=== PATIENT | female | born 1980 | race Caucasian/White ===

== ENCOUNTER 2019-08-29 16:14 | Emergency (ER) | payer MEDICAID ==
[2019-08-29] MEDS ORDERED: Sodium Chloride 0.9% 10 ML Syringe FLUSH PRN (16:27)
[2019-08-29] MEDS ORDERED: Sodium Chloride 0.9% 1,000 ML IV ONE (16:27)
[2019-08-29] MEDS ORDERED: Sodium Chloride 0.9% 2.5 ML Syringe FLUSH PRN (16:27)
--- NOTE | 2019-08-29 16:29 | EDM.PDOC ---
ED HPI GENERAL MEDICAL PROBLEM - General Chief Complaint: Abdominal Pain Stated Complaint: ABD PAIN Time Seen by Provider: 08/29/19 16:27 Source of Information: Reports: Patient History Limitations: Reports: No Limitations - History of Present Illness INITIAL COMMENTS - FREE TEXT/NARRATIVE: HISTORY AND PHYSICAL: History of present illness: Patient is a 39-year-old female presents to the ED with complaint of abdominal pain x 7 days. She states she has had upper mid and left abdominal pain, was seen at [facility] today and diagnosed with a UTI. She states she has had some nausea but not vomiting, diarrhea, fevers, chills, chest pain, SOB. She reports history of gallstones. Denies significant past medical history. She reports surgical history of c-sections. Review of systems: As per history of present illness and below otherwise all systems reviewed and negative. Past medical history: As per history of present illness and as reviewed below otherwise noncontributory. Surgical history: As per history of present illness and as reviewed below otherwise noncontributory. Social history: No reported history of drug or alcohol abuse. Family history: As per history of present illness and as reviewed below otherwise noncontributory. Physical exam: General: Patient sitting comfortably in no acute distress and nontoxic appearing HEENT: Atraumatic, normocephalic, pupils reactive, negative for conjunctival pallor or scleral icterus, mucous membranes moist, throat clear, neck supple, nontender, trachea midline. No meningeal signs. Lungs: Clear to auscultation, breath sounds equal bilaterally, chest nontender. Heart: S1S2, regular, negative for clicks, rubs, or overt murmur. Abdomen: Epigastric abdominal tenderness to palpation. Soft, nondistended. Negative for masses or hepatosplenomegaly. Negative for costovertebral tenderness. No rigidity, rebound, guarding. Pelvis: Stable nontender. Genitourinary: Deferred. Rectal: Deferred. Extremities: Atraumatic, negative for cords or calf pain. Neurovascular unremarkable. Neuro: Awake, alert, oriented. Cranial nerves II through XII unremarkable. Cerebellum unremarkable. Motor and sensory unremarkable throughout. Exam nonfocal. Notes: Discussed with Dr. Teresa, she would patient to be transferred for urgent MRCP and possible ERCP. Diagnostics: CBC, CMP, RUQ US, UA Therapeutics: Prescriptions: Impression: Common bile duct dilation, elevated bilirubin Plan: Discussed with Dr. Gandhi, gastroenterology at [facility], patient accepted for transfer. Definitive disposition and diagnosis as appropriate pending reevaluation and review of above. Upper Abdomen Pain Score (Numeric/FACES): 7 - Related Data Allergies Allergy/AdvReac Type Severity Reaction Status Date / Time amoxicillin Allergy Swelling Verified 08/29/19 16:26 cephalexin Allergy Swelling Verified 08/29/19 16:26 Penicillins Allergy Swelling Verified 08/29/19 16:26 Home Meds: Home Meds Nitrofurantoin Macrocrystal [Macrodantin] 100 mg PO BID 08/29/19 [History] Past Medical History HEENT History: Reports: Other (See Below) Other HEENT History: seasonal allergy Cardiovascular History: Reports: None Respiratory History: Reports: None Gastrointestinal History: Reports: GERD [employer] [place] History: Reports: , Spontaneous Musculoskeletal History: Reports: None Neurological History: Reports: None Psychiatric History: Reports: None Endocrine/Metabolic History: Reports: Obesity/BMI 30+ Hematologic History: Reports: None Immunologic History: Reports: None Oncologic (Cancer) History: Reports: None Dermatologic History: Reports: None - Past Surgical History Female Surgical History: Reports: Section Musculoskeletal Surgical History: Reports: Other (See Below) Social & Family History - Family History HEENT: Reports: Cataract, Glaucoma Cardiac: Reports: High Cholesterol : Reports: Other (See Below) Other Family History: Kidney transplant Endocrine/Metabolic: Reports: Diabetes, type II Oncologic: Reports: Lung ED ROS GENERAL - Review of Systems Review Of Systems: ROS reveals no pertinent complaints other than HPI. ED EXAM, GI/ABD - Physical Exam Exam: See Below (see dictation) Course - Vital Signs Last Recorded V/S: Last Vital Signs Temp 97.1 F 08/29/19 16:24 Pulse 81 08/29/19 16:24 Resp 18 08/29/19 16:24 BP 118/81 08/29/19 16:24 Pulse Ox 100 08/29/19 16:24 - Orders/Labs/Meds Orders: Active Orders 24 hr Category Date Time Status CULTURE URINE [RM] Stat Lab 08/29/19 16:45 Received Sodium Chloride 0.9% [Saline Flush] Med 08/29/19 16:27 Active 10 ml FLUSH ASDIRECTED PRN Sodium Chloride 0.9% [Saline Flush] Med 08/29/19 16:27 Active 2.5 ml FLUSH ASDIRECTED PRN Saline Lock Insert [OM.PC] Stat Oth 08/29/19 16:27 Ordered Medication Orders Sodium Chloride (Saline Flush) 10 ml FLUSH ASDIRECTED PRN PRN Reason: Keep Vein Open Sodium Chloride (Saline Flush) 2.5 ml FLUSH ASDIRECTED PRN PRN Reason: Keep Vein Open Labs: Laboratory Tests 08/29/19 08/29/19 08/29/19 Range/Units 16:45 16:45 16:45 WBC 8.19 (4.0-11.0) K/uL RBC 4.65 (4.30-5.90) M/uL Hgb 13.8 (12.0-16.0) g/dL Hct 41.6 (36.0-46.0) % MCV 89.5 (80.0-98.0) fL MCH 29.7 (27.0-32.0) pg MCHC 33.2 (31.0-37.0) g/dL RDW Std Deviation 41.0 (28.0-62.0) fl RDW Coeff of Allegra 13 (11.0-15.0) % Plt Count 279 (150-400) K/uL MPV 9.90 (7.40-12.00) fL Neut % (Auto) 62.4 (48.0-80.0) % Lymph % (Auto) 24.4 (16.0-40.0) % George % (Auto) 8.8 (0.0-15.0) % Eos % (Auto) 4.0 (0.0-7.0) % Baso % (Auto) 0.4 (0.0-1.5) % Neut # (Auto) 5.1 (1.4-5.7) K/uL Lymph # (Auto) 2.0 (0.6-2.4) K/uL George # (Auto) 0.7 (0.0-0.8) K/uL Eos # (Auto) 0.3 (0.0-0.7) K/uL Baso # (Auto) 0.0 (0.0-0.1) K/uL Nucleated RBC % 0.0 /100WBC Nucleated RBCs # 0 K/uL Sodium (136-145) mmol/L Potassium (3.5-5.1) mmol/L Chloride (98-107) mmol/L Carbon Dioxide (21.0-32.0) mmol/L BUN (7.0-18.0) mg/dL Creatinine (0.6-1.0) mg/dL Est Cr Clr Drug Dosing mL/min Estimated GFR (MDRD) ml/min Glucose (74-106) mg/dL Calcium (8.5-10.1) mg/dL Total Bilirubin (0.2-1.0) mg/dL AST (15-37) IU/L ALT (14-63) IU/L Alkaline Phosphatase (46-116) U/L Total Protein (6.4-8.2) g/dL Albumin (3.4-5.0) g/dL Globulin (2.6-4.0) g/dL Albumin/Globulin Ratio (0.9-1.6) Lipase (73-393) U/L Urine Color ORANGE Urine Appearance HAZY Urine pH 5.0 (5.0-8.0) Ur Specific [place] >= 1.030 (1.001-1.035) Urine Protein 30 H (NEGATIVE) mg/dL Urine Glucose (UA) 100 H (NEGATIVE) mg/dL Urine Ketones >=80 (NEGATIVE) mg/dL Urine Occult Blood TRACE-INTACT H (NEGATIVE) Urine Nitrite POSITIVE H (NEGATIVE) Urine Bilirubin LARGE H (NEGATIVE) Urine Ictotest POSITIVE Urine Urobilinogen 4.0 H (<2.0) EU/dL Ur Leukocyte Esterase TRACE H (NEGATIVE) Urine RBC 0-2 (0-2/HPF) Urine WBC 1-3 (0-5/HPF) Ur Epithelial Cells FEW (NONE-FEW) Urine Bacteria FEW (NEGATIVE) Urine Mucus MODERATE (NONE-MOD) Urine HCG, Qual NEGATIVE (NEGATIVE) 08/29/19 Range/Units 16:45 WBC (4.0-11.0) K/uL RBC (4.30-5.90) M/uL Hgb (12.0-16.0) g/dL Hct (36.0-46.0) % MCV (80.0-98.0) fL MCH (27.0-32.0) pg MCHC (31.0-37.0) g/dL RDW Std Deviation (28.0-62.0) fl RDW Coeff of Allegra (11.0-15.0) % Plt Count (150-400) K/uL MPV (7.40-12.00) fL Neut % (Auto) (48.0-80.0) % Lymph % (Auto) (16.0-40.0) % George % (Auto) (0.0-15.0) % Eos % (Auto) (0.0-7.0) % Baso % (Auto) (0.0-1.5) % Neut # (Auto) (1.4-5.7) K/uL Lymph # (Auto) (0.6-2.4) K/uL George # (Auto) (0.0-0.8) K/uL Eos # (Auto) (0.0-0.7) K/uL Baso # (Auto) (0.0-0.1) K/uL Nucleated RBC % /100WBC Nucleated RBCs # K/uL Sodium 140 (136-145) mmol/L Potassium 3.9 (3.5-5.1) mmol/L Chloride 102 (98-107) mmol/L Carbon Dioxide 26.2 (21.0-32.0) mmol/L BUN 7 (7.0-18.0) mg/dL Creatinine 0.8 (0.6-1.0) mg/dL Est Cr Clr Drug Dosing 98.67 mL/min Estimated GFR (MDRD) > 60.0 ml/min Glucose 105 (74-106) mg/dL Calcium 9.1 (8.5-10.1) mg/dL Total Bilirubin 5.9 H (0.2-1.0) mg/dL AST 193 H (15-37) IU/L ALT 506 H (14-63) IU/L Alkaline Phosphatase 270 H (46-116) U/L Total Protein 7.6 (6.4-8.2) g/dL Albumin 3.8 (3.4-5.0) g/dL Globulin 3.8 (2.6-4.0) g/dL Albumin/Globulin Ratio 1.0 (0.9-1.6) Lipase 109 (73-393) U/L Urine Color Urine Appearance Urine pH (5.0-8.0) Ur Specific [place] (1.001-1.035) Urine Protein (NEGATIVE) mg/dL Urine Glucose (UA) (NEGATIVE) mg/dL Urine Ketones (NEGATIVE) mg/dL Urine Occult Blood (NEGATIVE) Urine Nitrite (NEGATIVE) Urine Bilirubin (NEGATIVE) Urine Ictotest Urine Urobilinogen (<2.0) EU/dL Ur Leukocyte Esterase (NEGATIVE) Urine RBC (0-2/HPF) Urine WBC (0-5/HPF) Ur Epithelial Cells (NONE-FEW) Urine Bacteria (NEGATIVE) Urine Mucus (NONE-MOD) Urine HCG, Qual (NEGATIVE) Meds: Medications Generic Name Dose Route Start Last Admin Trade Name Freq PRN Reason Stop Dose Admin Sodium Chloride 10 ml 08/29/19 16:27 Saline Flush FLUSH ASDIRECTED PRN Keep Vein Open Sodium Chloride 2.5 ml 08/29/19 16:27 Saline Flush FLUSH ASDIRECTED PRN Keep Vein Open Discontinued Medications Generic Name Dose Route Start Last Admin Trade Name Freq PRN Reason Stop Dose Admin Sodium Chloride 1,000 mls @ 999 mls/hr 08/29/19 16:27 08/29/19 16:55 Normal Saline IV 08/29/19 17:27 999 mls/hr STAT ONE Administration Ketorolac Tromethamine 30 mg 08/29/19 16:37 08/29/19 16:55 Toradol IVPUSH 08/29/19 16:38 30 mg ONETIME ONE Administration Departure - Departure Time of Disposition: 18:56 Disposition: DC/Tfer to Acute Hospital 02 Condition: Good Clinical Impression: Common bile duct dilation, Elevated bilirubin - Discharge Information Referrals: PCP,None [Primary Care Provider] - Forms: ED Department Discharge Additional Instructions: The following information is given to patients seen in the emergency department who are being discharged to home. This information is to outline your options for follow-up care. We provide all patients seen in our emergency department with a follow-up referral. The need for follow-up, as well as the timing and circumstances, are variable depending upon the specifics of your emergency department visit. If you don't have a primary care physician on staff, we will provide you with a referral. We always advise you to contact your personal physician following an emergency department visit to inform them of the circumstance of the visit and for follow-up with them and/or the need for any referrals to a consulting specialist. The emergency department will also refer you to a specialist when appropriate. This referral assures that you have the opportunity for follow-up care with a specialist. All of these measure are taken in an effort to provide you with optimal care, which includes your follow-up. Under all circumstances we always encourage you to contact your private physician who remains a resource for coordinating your care. When calling for follow-up care, please make the office aware that this follow-up is from your recent emergency room visit. If for any reason you are refused follow-up, please contact the [facility] Emergency Department at and asked to speak to the emergency department charge nurse. [facility] [address] [place] [address] Please proceed directly to [facility]. Dr. Watson, gastroenterology, is expecting your arrival tonight. - My Orders Last 24 Hours: My Active Orders 08/29/19 16:27 Sodium Chloride 0.9% [Saline Flush] 10 ml FLUSH ASDIRECTED PRN Sodium Chloride 0.9% [Saline Flush] 2.5 ml FLUSH ASDIRECTED PRN Saline Lock Insert [OM.PC] Stat 08/29/19 16:45 CULTURE URINE [RM] Stat - Assessment/Plan Last 24 Hours: My Active Orders 08/29/19 16:27 Sodium Chloride 0.9% [Saline Flush] 10 ml FLUSH ASDIRECTED PRN Sodium Chloride 0.9% [Saline Flush] 2.5 ml FLUSH ASDIRECTED PRN Saline Lock Insert [OM.PC] Stat 08/29/19 16:45 CULTURE URINE [RM] Stat
[2019-08-29] MEDS ORDERED: Ketorolac 30 MG/ML SDV IVPUSH ONE (16:37)
[2019-08-29 17:29] LABS: BLOOD UREA NITROGEN,BUN 7 mg/dL (7.0-18.0); CARBON DIOXIDE,CO2 26.2 mmol/L (21.0-32.0); CHLORIDE,CL 102 mmol/L (98-107); GLUCOSE RANDOM 105 mg/dL (74-106); LIPASE 109 U/L (73-393); POTASSIUM,K 3.9 mmol/L (3.5-5.1); SODIUM,NA 140 mmol/L (136-145)
--- NOTE | 2019-08-29 18:27 | US ---
INDICATION: Right upper quadrant abdominal pain with elevated liver enzymes. TECHNIQUE: Grayscale imaging of the right upper quadrant. COMPARISON: 04/29/2016. FINDINGS: The gallbladder demonstrates intraluminal mobile echogenic foci consistent with cholelithiasis. The gallbladder wall is not thickened measuring 2.1 mm. The common bile duct is dilated measuring 9.3 mm. There is mild intrahepatic bile duct dilatation. Can`t exclude the possibility of choledocholithiasis. The right kidney measures 10.7 cm in length and demonstrates no hydronephrosis. No masses identified within the liver. The pancreas is incompletely visualized due to shadowing from bowel gas. No gross pancreatic abnormalities are seen. No upper abdominal ascites noted. IMPRESSION: 1. Cholelithiasis without sonographic evidence of acute cholecystitis. Multiple small calculi are present within the gallbladder lumen. 2. Extrahepatic and mild intrahepatic biliary ductal dilatation could indicate choledocholithiasis or recent passage of a stone. Dictated by Humberto Rabago MD @ Aug 29 2019 6:22PM Signed by Dr. Humberto Rabago @ Aug 29 2019 6:26PM
[2019-08-29 19:12] VITALS: BP 119/72; PULSE 77
== END 2019-08-29 19:40 ==
LOC: MW.ED 16:14
DX: K83.8 Other specified diseases of biliary tract (principal); E80.6 Other disorders of bilirubin metabolism; E66.9 Obesity, unspecified; Z68.27 Body mass index [BMI] 27.0-27.9, adult; Z88.1 Allergy status to other antibiotic agents; Z88.0 Allergy status to penicillin; Z79.899 Other long term (current) drug therapy
CPT/HCPCS: 76705; 80053; 81001; 81025; 83690; 85025; 87086; 96361; 96374; 99285; J1885; J7040